=== PATIENT | male | born 1990 | race Caucasian/White ===

== ENCOUNTER 2020-05-11 09:18 | Emergency (ER) | payer BC, SELFPAY ==
[2020-05-11 09:22] VITALS: BP 125/81; PULSE 74; RESP 20; TEMP 37; O2SAT 100
--- NOTE | 2020-05-11 09:35 | ED.GENADULT ---
HPI - General Adult General Chief complaint: Wound/Laceration Stated complaint: Remove Stitches Time Seen by Provider: 05/11/20 09:35 Source: patient Mode of arrival: ambulatory Limitations: no limitations History of Present Illness HPI narrative: Jaquan Prescott is a 30 yo male who is a pt of DR Smith who came here today for surure removal after excision of a sebaceous cyst on 04/27/20. Related Data Allergies Allergy/AdvReac Type Severity Reaction Status Date / Time Penicillins Allergy Unknown Unknown Verified 05/11/20 09:36 Review of Systems Review of Systems: Narrative: CONSTITUTIONAL: Denies fever, chills, sweats. EYES: Denies visual changes, redness, discharge. ENT: Denies rhinorrhea, congestion, sore throat, otalgia. CARDIOVASCULAR: Denies chest pain, palpitations, edema. RESPIRATORY: Denies dyspnea, wheezing, cough GASTROINTESTINAL: Denies abdominal pain, nausea, vomiting, diarrhea. GENITOURINARY: Denies dysuria, hematuria, abnormal discharge SKIN: Denies rash or itching. Need sutures removed NEUROLOGIC: Denies numbness, or focal weakness. PSYCHIATRIC: Denies anxiety or depression. FOR[facility]LY [facility] Past Medical History Medical History Essential (primary) hypertension Surgical History Surgical History Hx of LASIK left eye Family History Family History Father Family history of alcoholism Cerebrovascular accident Social History Social History Smoking status: Former smoker Second hand tobacco smoke exposure: No Smoking end date: 09/21/07 Alcohol intake: current Substance use: never Substance use type: does not use Comments At time of signature, I agree with nursing past medical, surgical, social and family history. There is no relevant family history pertinent to the presenting complaint. Exam Narrative: Exam Narrative: GENERAL: This is a well-nourished, well-developed patient, in mild distress. HEAD: normocephalic, atraumatic. EYES: Sclera clear/white. Vision is grossly intact. EARS: External ears normal, Hearing grossly intact. NOSE: External nose normal without nasal discharge, nares without redness, no rhinorrhea. THROAT: Mucous membranes moist, posterior pharynx NECK: Neck supple, non-tender CARDIOVASCULAR: Regular rate and rhythm without murmurs, gallops, or rubs. RESPIRATORY: Clear to auscultation. Breath sounds equal bilaterally. No wheezes, rales, or rhonchi. GASTROINTESTINAL: Abdomen soft, non-tender, SKIN: warm, intact with no suspicious lesions or rash, good texture and turgor. 5 sutures in parietal right lobe scalp NEURO: awake, alert, and oriented to person, place and time. There were no obvious focal neurologic abnormalities. Steady gait EXTREMITIES: Normal range of motion. BACK: Nontender without deformity Course Course Emergency Course: 5 sutures removed follow-up with Dr. Valencia Vital Signs Vital signs: Vital Signs Temperature 98.6 F 05/11/20 09:22 Pulse Rate 74 05/11/20 09:22 Respiratory Rate 20 05/11/20 09:22 Blood Pressure 125/81 05/11/20 09:22 Pulse Oximetry 100 05/11/20 09:22 Temperature 98.6 F 05/11/20 09:22 Pulse Rate 74 05/11/20 09:22 Respiratory Rate 20 05/11/20 09:22 Blood Pressure 125/81 05/11/20 09:22 Pulse Oximetry 100 05/11/20 09:22 Procedures Other Procedure Procedure 1: Other Procedure: suture removal - 5 sutures - well approximated Medical Decision Making Differential Diagnosis Differential Diagnosis: Suture removal well-healed Vital Signs Vital Signs: Vital Signs Temperature 98.6 F 05/11/20 09:22 Pulse Rate 74 05/11/20 09:22 Respiratory Rate 20 05/11/20 09:22 Blood Pressure 125/81 05/11/20 09:22 Pulse Oximetry 100 05/11/20 09:22 Temperature 98.6 F 05/11
== END 2020-05-11 09:50 | disposition home or self-care (01) ==
PROVIDERS: Emergency Provider Nurse Practitioner; PCP Family Medicine
DX: Z48.02 Encounter for removal of sutures (principal); Z87.891 Personal history of nicotine dependence; I10 Essential (primary) hypertension
CPT/HCPCS: 99211; G0463

== ENCOUNTER 2023-04-16 15:27 | Outpatient (CLI) | payer BC, SELFPAY ==
[2023-04-16 19:36] LABS: Basophils Absolute Auto 0.1 K/mm3 (0.0-0.1); Basophils Percent Auto 1.3 % (0.2-1.2); Eosinophils Absolute Auto 0.2 K/mm3 (0-0.3); Eosinophils Percent Auto 2.9 % (0-4.4); Hematocrit 47.9 % (42.0-52.0); Hemoglobin 16.5 g/dL (14.0-18.0); Immature Granulocyte Absolute 0.04 K/mm3 (0.00-0.031); Immature Granulocyte Percent A 0.6 % (0-0.5); Lymphocytes Absolute Auto 2.04 K/mm3 (0.9-3.2); Lymphocytes Percent Auto 32.4 % (18.3-44.2); Mean Corpuscular HGB Conc 34.4 g/dl (32-36); Mean Corpuscular Hemoglobin 31.3 pg (26-34); Mean Corpuscular Volume 90.9 fl (80-100); Mean Platelet Volume 9.9 fl (7.4-10.4); Monocytes Absolute Auto 0.5 K/mm3 (0.1-0.6); Monocytes Percent Auto 8.4 % (2.6-8.5); Neutrophils Absolute Auto 3.4 K/mm3 (1.3-6.7); Neutrophils Percent Auto 54.4 % (45.5-73.1); Platelet Count Result 232 k/mm3 (150-375); Red Blood Count 5.27 M/mm3 (4.6-6.20); Red Cell Distribution Width 11.9 % (11.5-14.5); White Blood Count 6.3 K/mm3 (4.5-10.0)
[2023-04-16 19:47] LABS: Alanine Aminotransferase 143 U/L (6-50); Albumin Level 5.1 g/dL (3.5-5.1); Alkaline Phosphatase 50 U/L (38-126); Anion Gap 10 mmol/L (8-16); Aspartate Amino Transferase 130 U/L (17-59); Bilirubin,Total 0.9 mg/dL (0.2-1.3); Blood Urea Nitrogen 15 mg/dL (9-20); Calcium 9.7 mg/dL (8.4-10.2); Carbon Dioxide 28 mmol/L (22-30); Chloride 103 mmol/L (98-107); Cholesterol 273 mg/dL (0-200); Estimated Glomerular Filt Rate > 60; Glucose 110 mg/dL (65-110); HDL Direct 90 mg/dL; Potassium 4.5 mmol/L (3.4-5.0); Sodium 141 mmol/L (137-145); Triglycerides 113 mg/dL (<150)
[2023-04-16 19:58] LABS: LDL Cholesterol Direct 144 mg/dL
[2023-04-16 20:11] LABS: Hemoglobin A1C 5.6 % (<5.7)
[2023-04-16 20:14] LABS: Vitamin D 25 Hydroxy 18.7 ng/mL
== END 2023-04-16 15:28 | disposition home or self-care (01) ==
LOC: ANHGOSHLAB 15:29
PROVIDERS: PCP Family Medicine; Visit Provider Nurse Practitioner Family
DX: Z13.21 Encounter for screening for nutritional disorder (principal); Z13.1 Encounter for screening for diabetes mellitus; E53.8 Deficiency of other specified B group vitamins; Z13.29 Encounter for screening for other suspected endocrine disorder; I10 Essential (primary) hypertension; Z13.220 Encounter for screening for lipoid disorders; F10.10 Alcohol abuse, uncomplicated
CPT/HCPCS: 36415; 80053; 80061; 82306; 82607; 83036; 84443; 85025

== ENCOUNTER 2024-01-08 15:25 | Outpatient (CLI) | payer OTHER, SELFPAY ==
[2024-01-08 19:22] LABS: Basophils Absolute Auto 0.1 K/mm3 (0.0-0.1); Basophils Percent Auto 1.4 % (0.2-1.2); Eosinophils Absolute Auto 0.2 K/mm3 (0-0.3); Eosinophils Percent Auto 3.1 % (0-4.4); Hematocrit 50.3 % (42.0-52.0); Hemoglobin 16.8 g/dL (14.0-18.0); Immature Granulocyte Absolute 0.03 K/mm3 (0.00-0.031); Immature Granulocyte Percent A 0.4 % (0-0.5); Lymphocytes Absolute Auto 2.04 K/mm3 (0.9-3.2); Lymphocytes Percent Auto 27.6 % (18.3-44.2); Mean Corpuscular HGB Conc 33.4 g/dl (32-36); Mean Corpuscular Hemoglobin 30.5 pg (26-34); Mean Corpuscular Volume 91.5 fl (80-100); Mean Platelet Volume 10.2 fl (7.4-10.4); Monocytes Absolute Auto 0.6 K/mm3 (0.1-0.6); Monocytes Percent Auto 8.4 % (2.6-8.5); Neutrophils Absolute Auto 4.4 K/mm3 (1.3-6.7); Neutrophils Percent Auto 59.1 % (45.5-73.1); Platelet Count Result 264 k/mm3 (150-375); Red Cell Distribution Width 12.4 % (11.5-14.5); White Blood Count 7.4 K/mm3 (4.5-10.0)
[2024-01-08 19:37] LABS: Hemoglobin A1C 5.3 % (<5.7)
[2024-01-08 20:01] LABS: Vitamin D 25 Hydroxy 13.3 ng/mL
[2024-01-08 20:14] LABS: Thyroid Stimulating Hormone Reflex 0.858 uIU/mL (0.465-4.68)
[2024-01-09 00:02] LABS: Alanine Aminotransferase 51 U/L (6-50); Albumin Level 5.1 g/dL (3.5-5.1); Alkaline Phosphatase 41 U/L (38-126); Anion Gap 6 mmol/L (4-12); Aspartate Amino Transferase 46 U/L (17-59); Bilirubin,Total 0.9 mg/dL (0.2-1.3); Blood Urea Nitrogen 14 mg/dL (9-20); Calcium 10.3 mg/dL (8.4-10.2); Carbon Dioxide 30 mmol/L (22-30); Chloride 104 mmol/L (98-107); Cholesterol 215 mg/dL (0-200); Estimated Glomerular Filt Rate > 60; Glucose 113 mg/dL (65-110); HDL Direct 71 mg/dL; Potassium 4.7 mmol/L (3.4-5.0); Sodium 140 mmol/L (137-145); Triglycerides 89 mg/dL (<150)
[2024-01-09 00:13] LABS: LDL Cholesterol Direct 114 mg/dL
[2024-01-14 10:43] LABS: Vitamin B6 22.6 ng/mL (2.1-21.7)
== END 2024-01-08 15:26 | disposition home or self-care (01) ==
LOC: ANHGOSHLAB 15:26
PROVIDERS: PCP Family Medicine; Visit Provider Nurse Practitioner Family
DX: Z00.00 Encounter for general adult medical examination without abnormal findings (principal); F10.10 Alcohol abuse, uncomplicated; F41.9 Anxiety disorder, unspecified; I10 Essential (primary) hypertension; E55.9 Vitamin D deficiency, unspecified; R73.03 Prediabetes; E03.9 Hypothyroidism, unspecified; E78.5 Hyperlipidemia, unspecified; R20.0 Anesthesia of skin; R20.2 Paresthesia of skin; E53.8 Deficiency of other specified B group vitamins
CPT/HCPCS: 36415; 80053; 80061; 82306; 82607; 83036; 84207; 84443; 85025